=== PATIENT | male | born 1940 | race Caucasian/White ===

== ENCOUNTER 2016-08-22 07:47 | Outpatient (CLI) | payer MEDICARE | END 2016-08-22 07:48 | disposition home or self-care (01) | DX: I25.10 Atherosclerotic heart disease of native coronary artery without angina pectoris (principal); E78.5 Hyperlipidemia, unspecified; E03.9 Hypothyroidism, unspecified; Z79.899 Other long term (current) drug therapy ==

== ENCOUNTER 2016-11-30 07:46 | Outpatient (CLI) | payer MEDICARE | END 2016-11-30 07:47 | disposition home or self-care (01) | DX: D64.9 Anemia, unspecified (principal); E03.9 Hypothyroidism, unspecified ==

== ENCOUNTER 2016-12-06 12:59 | Outpatient (CLI) | payer MEDICARE | END 2016-12-06 13:00 | disposition home or self-care (01) | DX: D75.89 Other specified diseases of blood and blood-forming organs (principal) ==

== ENCOUNTER 2017-03-15 08:00 | Outpatient (CLI) | payer MEDICARE ==
[2017-03-15 19:44] LABS: BASOPHILS % (AUTO) 0.6 %; EOSINOPHILS # (AUTO) 0.3 10^3/uL (0.0-0.7); EOSINOPHILS % (AUTO) 4.2 %; HCT - HEMATOCRIT 38.9 % (42.0-52.0); HGB - HEMOGLOBIN 13.2 g/dL (14.0-18.0); LYMPHOCYTES # (AUTO) 1.2 10^3/uL (1.5-3.5); LYMPHOCYTES % (AUTO) 18.9 %; MEAN CORPUSCULAR HEMOGLOBIN 33.7 pg (27.0-31.0); MEAN CORPUSCULAR HGB CONC 33.9 g/dL (32.0-36.0); MEAN CORPUSCULAR VOLUME 99.3 fL (80.0-94.0); MEAN PLATELET VOLUME 8.5 fL (7.4-11.4); MONOCYTES # (AUTO) 0.5 10^3/uL (0.0-1.0); MONOCYTES % (AUTO) 8.6 %; NEUTROPHILS # (AUTO) 4.3 10^3/uL (1.5-6.6); NEUTROPHILS % (AUTO) 67.7 %; NUCLEATED RED BLOOD CELLS AUTO 0.1 /100WBC; RED BLOOD COUNT 3.92 10^6/uL (4.70-6.10); RED CELL DISTRIBUTION WIDTH 12.4 % (12.0-15.0); UNCORRECTED WHITE BLOOD COUNT 6.3 x10^3/uL; WHITE BLOOD COUNT 6.3 x10^3/uL (4.8-10.8)
== END 2017-03-15 08:01 ==
LOC: LAB.F 08:00
PROVIDERS: ATTEND Internal Medicine
DX: D64.9 Anemia, unspecified (principal)
CPT/HCPCS: 36415; 85025

== ENCOUNTER 2017-09-12 08:41 | Outpatient (CLI) | payer MEDICARE ==
[2017-09-12 12:01] LABS: BASOPHILS % (AUTO) 0.7 %; EOSINOPHILS # (AUTO) 0.3 10^3/uL (0.0-0.7); HGB - HEMOGLOBIN 13.6 g/dL (14.0-18.0); LYMPHOCYTES % (AUTO) 19.5 %; MEAN CORPUSCULAR HEMOGLOBIN 33.1 pg (27.0-31.0); MEAN CORPUSCULAR HGB CONC 34.3 g/dL (32.0-36.0); MEAN CORPUSCULAR VOLUME 96.5 fL (80.0-94.0); MEAN PLATELET VOLUME 9.1 fL (7.4-11.4); MONOCYTES # (AUTO) 0.4 10^3/uL (0.0-1.0); MONOCYTES % (AUTO) 8.6 %; NEUTROPHILS # (AUTO) 3.4 10^3/uL (1.5-6.6); NEUTROPHILS % (AUTO) 66.2 %; PLT - PLATELET COUNT 135 10^3/uL (130-450); RED BLOOD COUNT 4.11 10^6/uL (4.70-6.10); RED CELL DISTRIBUTION WIDTH 12.8 % (12.0-15.0); WHITE BLOOD COUNT 5.1 x10^3/uL (4.8-10.8)
[2017-09-12 12:24] LABS: ALBUMIN 3.8 g/dL (3.2-5.5); ALBUMIN/GLOBULIN RATIO 1.3 (1.0-2.2); ALKALINE PHOSPHATASE 66 IU/L (42-121); ALT ALANINE AMINOTRANSFERASE 33 IU/L (10-60); AST ASPARTATE AMINOTRANSFERASE 33 IU/L (10-42); BILIRUBIN,TOTAL 0.8 mg/dL (0.2-1.0); BUN - BLOOD UREA NITROGEN 21 mg/dL (6-20); CARBON DIOXIDE - CO2 27 mmol/L (21-32); CHLORIDE 107 mmol/L (101-111); CHOLESTEROL 125 mg/dL; GFR - MDRD 73 (>89); GLUCOSE 105 mg/dL (70-100); HDL CHOLESTEROL 41 mg/dL; LDL CHOLESTEROL,CALCULATED 68 mg/dL; LDL/HDL RATIO 1.7 (<3.6); SODIUM 140 mmol/L (135-145); TOTAL PROTEIN 6.8 g/dL (6.7-8.2); VLDL CHOLESTEROL 16 mg/dL
== END 2017-09-12 08:42 | disposition home or self-care (01) ==
LOC: LAB.F 08:41
PROVIDERS: ATTEND Internal Medicine
DX: D58.9 Hereditary hemolytic anemia, unspecified (principal); E03.9 Hypothyroidism, unspecified; E78.5 Hyperlipidemia, unspecified; I25.10 Atherosclerotic heart disease of native coronary artery without angina pectoris; Z12.5 Encounter for screening for malignant neoplasm of prostate; Z79.899 Other long term (current) drug therapy
CPT/HCPCS: 36415; 80053; 80061; 84443; 85025; G0103; 83721; 84153

== ENCOUNTER 2017-10-02 08:48 | Outpatient (CLI) | payer MEDICARE ==
--- NOTE | 2017-10-03 11:50 | DEXA Report ---
DEXA SCAN: 10/02/2017 CLINICAL INDICATION: A 76-year-old male with history of COPD, hypothyroidism, previous diagnosis of osteopenia. TECHNIQUE: Dual energy x-ray absorptiometry (DXA) was performed on a [employer] system. Regions measured are the AP spine, femoral neck, and, if needed, forearm. COMPARISON: None. In accordance with the International Society for Clinical Densitometry (ISCD) guidelines, data from previous exams may be reanalyzed using current recommendations and techniques. This is done to allow a more accurate basis for comparison with the current study. FINDINGS: The data for the lumbar spine is as follows: REGION BMD (g/cm/cm) T-SCORE Z-SCORE L1 0.910 -2.1 -2.0 L2 1.222 -0.2 0.0 L3 1.159 -0.7 -0.6 L4 1.117 -1.0 -0.9 TOTAL 1.104 -1.0 -0.9 NOTE: All evaluable vertebrae are used for classification. The data for the hip is as follows: REGION BMD (g/cm/cm) T-SCORE Z-SCORE Neck 0.769 -2.3 -1.3 TOTAL 0.876 -1.6 -1.0 NOTE: The femoral neck or total proximal femur, whichever is lowest, is used for classification. IMPRESSION: THE WHO CLASSIFICATION BASED ON THE INTERNATIONAL REFERENCE STANDARD IS OSTEOPENIA. THE FRACTURE RISK IS INCREASED. RECOMMENDATION: Patients with diagnosis of osteoporosis or osteopenia should have regular bone mineral density assessment. For those eligible for Medicare, routine testing is allowed once every 2 years. Testing frequency can be increased for patients who have rapidly progressing disease or for those who are receiving medical therapy to restore bone mass. COMMENT: World Health Organization (WHO) definitions for osteoporosis and osteopenia: NORMAL BMD: T-score at 1.0 or higher, fracture risk is low. OSTEOPENIA BMD: T-score between 1.0 and -2.5, fracture risk is increased. OSTEOPOROSIS BMD: T-score at 2.5 or lower, fracture risk high. National Osteoporosis Foundation recommends: 1. Obtain adequate dietary calcium (at least 1200 mg per day) and vitamin D (400 -800 international units per day). 2. Participate, as appropriate, in regular weightbearing and muscle- strengthening exercise. 3. Avoid tobacco use and reduce alcohol and caffeine intake. 4. For more detailed information see the website at www.NOF.org. MTDD
== END 2017-10-02 08:49 | disposition home or self-care (01) ==
LOC: DI 08:48
PROVIDERS: ATTEND Internal Medicine
DX: M85.89 Other specified disorders of bone density and structure, multiple sites (principal)
CPT/HCPCS: 77080

== ENCOUNTER 2018-03-27 09:42 | Outpatient (CLI) | payer MEDICARE ==
[2018-03-27 17:15] LABS: BASOPHILS % (AUTO) 0.5 %; EOSINOPHILS # (AUTO) 0.2 10^3/uL (0.0-0.7); EOSINOPHILS % (AUTO) 4.1 %; HGB - HEMOGLOBIN 13.6 g/dL (14.0-18.0); LYMPHOCYTES # (AUTO) 0.9 10^3/uL (1.5-3.5); LYMPHOCYTES % (AUTO) 19.2 %; MEAN CORPUSCULAR HEMOGLOBIN 33.4 pg (27.0-31.0); MEAN CORPUSCULAR HGB CONC 34.2 g/dL (32.0-36.0); MEAN CORPUSCULAR VOLUME 97.6 fL (80.0-94.0); MEAN PLATELET VOLUME 8.9 fL (7.4-11.4); MONOCYTES # (AUTO) 0.5 10^3/uL (0.0-1.0); MONOCYTES % (AUTO) 10.1 %; NEUTROPHILS # (AUTO) 3.2 10^3/uL (1.5-6.6); NEUTROPHILS % (AUTO) 66.1 %; PLT - PLATELET COUNT 136 10^3/uL (130-450); RED BLOOD COUNT 4.09 10^6/uL (4.70-6.10); RED CELL DISTRIBUTION WIDTH 13.4 % (12.0-15.0); WHITE BLOOD COUNT 4.9 x10^3/uL (4.8-10.8)
== END 2018-03-27 09:43 | disposition home or self-care (01) ==
LOC: LAB.F 09:42
PROVIDERS: ATTEND Internal Medicine
DX: D64.9 Anemia, unspecified (principal)
CPT/HCPCS: 36415; 85025

== ENCOUNTER 2018-05-23 08:41 | Outpatient (CLI) | payer MEDICARE ==
[2018-05-23 09:07] LABS: BASOPHILS % (AUTO) 0.8 %; EOSINOPHILS # (AUTO) 0.3 10^3/uL (0.0-0.7); EOSINOPHILS % (AUTO) 5.8 %; HGB - HEMOGLOBIN 13.8 g/dL (14.0-18.0); LYMPHOCYTES # (AUTO) 0.9 10^3/uL (1.5-3.5); LYMPHOCYTES % (AUTO) 18.2 %; MEAN CORPUSCULAR HEMOGLOBIN 33.9 pg (27.0-31.0); MEAN CORPUSCULAR HGB CONC 34.8 g/dL (32.0-36.0); MEAN CORPUSCULAR VOLUME 97.5 fL (80.0-94.0); MEAN PLATELET VOLUME 8.2 fL (7.4-11.4); MONOCYTES # (AUTO) 0.5 10^3/uL (0.0-1.0); MONOCYTES % (AUTO) 9.5 %; NEUTROPHILS # (AUTO) 3.2 10^3/uL (1.5-6.6); NEUTROPHILS % (AUTO) 65.7 %; PLT - PLATELET COUNT 138 10^3/uL (130-450); RED BLOOD COUNT 4.06 10^6/uL (4.70-6.10); RED CELL DISTRIBUTION WIDTH 13.4 % (12.0-15.0); WHITE BLOOD COUNT 4.8 x10^3/uL (4.8-10.8)
[2018-05-23 09:18] LABS: PT - PROTHROMBIN TIME 11.5 secs (9.9-12.6)
[2018-05-23 09:21] LABS: ALBUMIN/GLOBULIN RATIO 1.3 (1.0-2.2); BILIRUBIN,TOTAL 1.1 mg/dL (0.2-1.0); CALCIUM 9.6 mg/dL (8.5-10.3); CREATININE 1.2 mg/dL (0.6-1.2)
--- NOTE | 2018-05-23 09:42 | XRAY Report ---
Reason: DA SILVA Procedure Date: 05/23/2018 Accession Number: [id number] / [id number] Procedure: XR - Chest 2 View X-Ray CPT Code: 86046 FULL RESULT: EXAM: CHEST RADIOGRAPHY EXAM DATE: 05/23/2018 09:17 AM. CLINICAL HISTORY: Shortness of breath. COMPARISON: None. TECHNIQUE: 2 views. FINDINGS: Lungs/Pleura: No focal opacities evident. No pleural effusion. No pneumothorax. Normal volumes. Mediastinum: Heart and mediastinal contours are notable for aortic calcification. Median sternotomy wires and surgical clips consistent with CABG is seen. Other: None. IMPRESSION: No cardiopulmonary abnormality demonstrated status post open heart surgery. RADIA
== END 2018-05-23 08:42 | disposition home or self-care (01) ==
LOC: LAB 08:41 → DI 08:42
PROVIDERS: ATTEND Internal Medicine Cardiovascular Disease
DX: R06.00 Dyspnea, unspecified (principal)
CPT/HCPCS: 36415; 71046; 80053; 83880; 84443; 85025; 85610

== ENCOUNTER 2018-07-26 11:26 | Outpatient (CLI) | payer MEDICARE ==
[2018-07-26 17:52] LABS: CALCIUM 9.5 mg/dL (8.5-10.3); CREATININE 1.3 mg/dL (0.6-1.2)
== END 2018-07-26 11:27 | disposition home or self-care (01) ==
LOC: LAB.F 11:26
PROVIDERS: ATTEND Internal Medicine Cardiovascular Disease
DX: I10 Essential (primary) hypertension (principal)
CPT/HCPCS: 36415; 80048

== ENCOUNTER 2019-05-13 19:13 | Emergency (ER) | payer MEDICARE ==
[2019-05-13 19:32] LABS: BILIRUBIN,URINE NEGATIVE (NEGATIVE); GLUCOSE, URINE (UA) NEGATIVE (NEGATIVE); KETONES,URINE (UA) NEGATIVE (NEGATIVE); LEUKOCYTE ESTERASE, URINE NEGATIVE (NEGATIVE); NITRITE,URINE NEGATIVE (NEGATIVE); OCCULT BLOOD,URINE LARGE (NEGATIVE); PROTEIN,URINE NEGATIVE (NEGATIVE); UROBILINOGEN,URINE 0.2 (NORMAL) E.U./dL (NORMAL)
[2019-05-13 19:34] LABS: CLARITY,URINE HAZY (CLEAR)
[2019-05-13 20:06] LABS: AMORPHOUS SEDIMENT,UR Few /LPF; BACTERIA,URINE Rare /HPF (None Seen); SQUAMOUS EPITHELIAL CELL,UR FEW Squamous (<= Few)
[2019-05-13] MEDS ORDERED: HYDROmorphone 1 MG/ML CARPUJECT IVP STA (20:27)
[2019-05-13] MEDS ORDERED: ONDANSETRON 4 MG/2 ML VIAL IVP STA (20:27)
[2019-05-13] MEDS ORDERED: SODIUM CHLORIDE 0.9% 1,000 ML IV ONE (20:27)
[2019-05-13] MEDS ORDERED: KETOROLAC 30 MG/ML VIAL IVP STA (20:27)
--- NOTE | 2019-05-13 20:29 | ED Physician Documentation ---
PD HPI ABD PAIN - Stated complaint Stated Complaint: BACK/AB PX - Chief complaint Chief Complaint: Abd Pain - History obtained from History obtained from: Patient - History of Present Illness Timing - onset: Yesterday (78-year-old gentleman with history of renal colic. Did need lithotripsy at one time. He developed right flank pain that has been Waxing and waning since then. No gross hematuria. Feels reminiscent of prior renal colic.) Review of Systems Constitutional: denies: Fever, Chills GI: reports: Nausea. denies: Vomiting : denies: Dysuria, Frequency, Hesitancy PD PAST MEDICAL HISTORY - Past Medical History Past Medical History: Yes Cardiovascular: High cholesterol, Coronary artery disease Respiratory: Asthma Neuro: None Endocrine/Autoimmune: HyPOthyroidism GI: GERD : Kidney stones HEENT: None Psych: None Musculoskeletal: Osteoarthritis Derm: None - Past Surgical History Past Surgical History: Yes General: Appendectomy, Colonoscopy Cardiovascular: CABG, Coronary stent - Present Medications Home Medications: Ambulatory Orders Medication Instructions Recorded Confirmed Aspirin [Aspir 81] 81 mg PO DAILY 09/01/13 05/13/19 Atorvastatin Calcium [Lipitor] 80 mg PO DAILY 09/01/13 05/13/19 Levothyroxine [Synthroid] 0.075 mcg PO DAILY 09/01/13 05/13/19 Metoprolol Succinate [Toprol Xl] 50 mg PO BID 09/01/13 05/13/19 Pantoprazole Sodium 40 mg PO DAILY 09/01/13 05/13/19 Allopurinol 100 mg PO DAILY 05/13/19 05/13/19 Losartan Potassium 25 mg PO DAILY 05/13/19 05/13/19 Tamsulosin [Flomax] 0.4 mg PO DAILY 05/13/19 05/13/19 Tramadol HCl 50 mg PO Q6HR 05/13/19 05/13/19 Triamterene/Hydrochlorothiazid 1 mg PO DAILY 05/13/19 05/13/19 [Triamterene-Hctz 37.5-25 mg Cp] Vit C/Ascorb Sod/Multivit-Min 500 mg PO BID 05/13/19 05/13/19 [Emergen-C 500 mg Chewable Tab] - Allergies Allergies/Adverse Reactions: Allergies Allergy/AdvReac Type Severity Reaction Status Date / Time oxycodone [From OxyContin] AdvReac Rash Verified 05/13/19 21:10 - Social History Does the pt smoke?: No Smoking Status: Never smoker Does the pt drink ETOH?: No Does the pt have substance abuse?: No - Immunizations Immunizations are current?: Yes - POLST Patient has POLST: No PD ED PE NORMAL - Vitals Vital signs reviewed: Yes - General General: Alert and oriented X 3, No acute distress - Abdomen Abdomen: Normal bowel sounds, Soft, Non tender - Back Back: No CVA TTP - Extremities Extremities: No edema, No calf tenderness / cord - Neuro Neuro: Alert and oriented X 3, Normal speech - Psych Psych: Normal mood, Normal affect Results - Vitals Vitals: Vital Signs - 24 hr 05/13/19 05/13/19 19:16 20:42 Temperature 36.5 C Heart Rate 92 81 Respiratory 16 16 Rate Blood Pressure 162/73 H 135/69 H O2 Saturation 96 99 Oxygen O2 Source Nasal cannula - Labs Labs: Laboratory Tests 05/13/19 05/13/19 05/13/19 19:23 19:50 19:50 WBC 9.3 RBC 4.11 L Hgb 13.4 L Hct 39.8 L MCV 96.8 H MCH 32.6 H MCHC 33.7 RDW 12.8 Plt Count 135 MPV 10.6 Neut # (Auto) 8.2 H Lymph # (Auto) 0.4 L [place] # (Auto) 0.7 Eos # (Auto) 0.0 Baso # (Auto) 0.0 Absolute Nucleated RBC 0.00 Nucleated RBC % 0.0 Sodium 138 Potassium 4.4 Chloride 97 L Carbon Dioxide 28 Anion Gap 13.0 BUN 28 H Creatinine 2.0 H Estimated GFR (MDRD) 33 L Glucose 165 H Calcium 9.9 Total Bilirubin 0.9 AST 36 ALT 39 Alkaline Phosphatase 68 Total Protein 7.8 Albumin 4.5 Globulin 3.3 Albumin/Globulin Ratio 1.4 Lipase 26 Urine Color YELLOW Urine Clarity HAZY Urine pH 5.0 Ur Specific [place] >=1.030 H Urine Protein NEGATIVE Urine Glucose (UA) NEGATIVE Urine Ketones NEGATIVE Urine Occult Blood LARGE H Urine Nitrite NEGATIVE Urine Bilirubin NEGATIVE Urine Urobilinogen 0.2 (NORMAL) Ur Leukocyte Esterase NEGATIVE Urine RBC 6-10 H Urine WBC 6-10 H Ur Squamous Epith Cells FEW Squamous Amorphous Sediment Few Urine Bacteria Rare Ur Microscopic Review INDICATED Urine Culture Comments INDICATED - Rads (name of study) CT KUB Radiology: EMP read contemporaneously (4 mm distal right ureteral stone with small stones in the kidneys and cholelithiasis.) PD MEDICAL DECISION MAKING - ED course ED course: 78-year-old gentleman presents with what is likely the right renal colic. We discussed potentially CT versus a more conservative course with meds only and he opted for the CT. After the administration of 1 mg of Dilaudid, 30 mg of Toradol, 4 mg of Zofran IV he was pain-free and comfortable. CT to my eye shows a small minimally obstructing stone in the right distal ureter. He is pain-free. He is given a Vicodin prepack. Advised to follow-up with [facility] urology in a week if not better. Given urine strainers. Given prescriptions for hydrocodone/acetaminophen 5/325 1 to 2 tablets every 6 hours as needed for pain #20, he is already on Flomax. Also a prescription for Zofran 4 mg every 6 hours as needed for nausea, #10. Departure - Departure Disposition: 01 Home, Self Care Clinical Impression: Renal colic Condition: Good Comments: He was given paper discharge instructions/rxs as we were in [facility] downtime.
[2019-05-13 20:45] VITALS: BP 135/69
[2019-05-13 20:47] LABS: ALBUMIN 4.5 g/dL (3.2-5.5); ALBUMIN/GLOBULIN RATIO 1.4 (1.0-2.2); BILIRUBIN,TOTAL 0.9 mg/dL (0.2-1.0); CALCIUM 9.9 mg/dL (8.5-10.3); TOTAL PROTEIN 7.8 g/dL (6.7-8.2)
[2019-05-13 20:54] LABS: BASOPHILS % (AUTO) 0.2 %; EOSINOPHILS % (AUTO) 0.1 %; HGB - HEMOGLOBIN 13.4 g/dL (14.0-18.0); LYMPHOCYTES # (AUTO) 0.4 10^3/uL (1.5-3.5); MEAN CORPUSCULAR HEMOGLOBIN 32.6 pg (27.0-31.0); MEAN CORPUSCULAR HGB CONC 33.7 g/dL (32.0-36.0); MEAN CORPUSCULAR VOLUME 96.8 fL (80.0-94.0); MEAN PLATELET VOLUME 10.6 fL (7.4-11.4); MONOCYTES # (AUTO) 0.7 10^3/uL (0.0-1.0); MONOCYTES % (AUTO) 7.3 %; NEUTROPHILS # (AUTO) 8.2 10^3/uL (1.5-6.6); PLT - PLATELET COUNT 135 10^3/uL (130-450); RED BLOOD COUNT 4.11 10^6/uL (4.70-6.10); RED CELL DISTRIBUTION WIDTH 12.8 % (12.0-15.0); WHITE BLOOD COUNT 9.3 x10^3/uL (4.8-10.8)
--- NOTE | 2019-05-13 22:33 | CT Report ---
Reason: R flank pain stone study Procedure Date: 05/13/2019 Accession Number: [id number] / [id number] Procedure: CT - Abdomen/Pelvis WO CPT Code: FULL RESULT: EXAM: CT ABDOMEN AND PELVIS (CT KUB) EXAM DATE: 05/13/2019 10:12 PM. CLINICAL HISTORY: R flank pain stone study. COMPARISONS: ABDOMEN/PELVIS W/O 02/24/2016 4:38 PM. TECHNIQUE: Routine axial helical CT imaging was performed through the abdomen and pelvis without IV contrast. Reconstructions: Coronal and sagittal. In accordance with CT protocol optimization, one or more of the following dose reduction techniques were utilized for this exam: automated exposure control, adjustment of mA and/or KV based on patient size, or use of iterative reconstructive technique. FINDINGS: Lung Bases: Unremarkable. Right Kidney/Ureter: 4 mm obstructive calculus in right distal ureter with upstream hydroureteronephrosis. Mildly enlarged right kidney with perinephric fat stranding, suggestive of acute obstructive uropathy. Left Kidney/Ureter: A nonobstructive 3 mm calculus and a 2 mm calculus in the midpole region of left kidney. No hydronephrosis. No hydronephrosis, or hydroureter. No perinephric fat stranding. Other Solid Organs: Noncontrast images of the solid organs are grossly unremarkable. Gallbladder/Bile Ducts: Cholelithiasis. Peritoneal Cavity: No free fluid, free air or daphne adenopathy. Bowel is grossly unremarkable. Diffuse colonic diverticulosis however no diverticulitis. Pelvic Organs: No bladder stones or wall thickening. Noncontrast images of the visualized pelvic organs are unremarkable. Vasculature: Unremarkable. Other: None. IMPRESSION: A 4 mm obstructive calculus in the right distal ureter with upstream hydroureteronephrosis. 2 nonobstructive small calculi in midpole of left kidney. Cholelithiasis. RADIA
[2019-05-13] MEDS ORDERED: HYDROcod/ACET 5/325 Prepack 4 PO ONE (22:34)
[2019-05-13] MEDS ORDERED: ONDANSETRON ODT 4 MG Prepack 2 TL ONE (22:34)
== END 2019-05-13 22:08 | disposition home or self-care (01) ==
LOC: ED 19:13
DX: N13.2 Hydronephrosis with renal and ureteral calculous obstruction (principal); N20.0 Calculus of kidney; K80.20 Calculus of gallbladder without cholecystitis without obstruction; Z79.82 Long term (current) use of aspirin
CPT/HCPCS: 36415; 74176; 80053; 81001; 83690; 85025; 87086; 96361; 96374; 99283; 99284; J1170; 81003

== ENCOUNTER 2020-06-18 08:22 | Outpatient (CLI) | payer MEDICARE ==
--- NOTE | 2020-06-18 09:59 | DEXA Report ---
PROCEDURE: Dexa Spine and/or Hip INDICATIONS: DISORDER OF BONE TECHNIQUE: Dual energy x-ray absorptiometry (DXA) was performed on a [employer] System. Regions measur ed are the AP Spine, femoral neck, and if needed forearm. COMPARISON: DEXA 10/02/2017 FINDINGS: Lumbar Spine: Bone Mineral Density 1.148 g/cm/cm,T score -0.6, normal and unchanged Left Hip: Bone Mineral Density 0.890 g/cm/cm,T score -1.5, compared to -1.6 on prior exam, mild osteopenia. Left Femoral Neck: Bone Mineral Density 0.804 g/cm/cm, T score -2.0, compared to -2.3 on prior exam, moderate to severe osteopenia (T score greater or equal to -1.0: NORMAL) (T score from -1.1 to -2.4: OSTEOPENIA) (T score less than or equal to -2.5 to: OSTEOPOROSIS) Impression: Persistent although mildly improved osteopenia within the left femoral neck. Patients with diagnosis of osteoporosis or osteopenia should have regular bone mineral density assess ment. For those eligible for Medicare, routine testing is allowed once every 2 years. Testing frequ ency can be increased for patients who have rapidly progressing disease or for those who are receivin g medical therapy to restore bone mass. Reviewed by: Renee Duong MD on 06/18/2020 9:58 AM PST Approved by: Renee Duong MD on 06/18/2020 9:58 AM PST Station ID: [id number]
== END 2020-06-18 08:23 | disposition home or self-care (01) ==
LOC: DI 08:22
PROVIDERS: ATTEND Physician Assistant
DX: M85.88 Other specified disorders of bone density and structure, other site (principal)
CPT/HCPCS: 77080

== ENCOUNTER 2020-12-21 16:05 | Outpatient (CLI) | payer MEDICARE | END 2020-12-21 16:06 | disposition home or self-care (01) | LOC: COV 16:05 | PROVIDERS: ATTEND Internal Medicine Cardiovascular Disease | DX: Z01.812 Encounter for preprocedural laboratory examination (principal); I25.119 Atherosclerotic heart disease of native coronary artery with unspecified angina pectoris; R06.09 Other forms of dyspnea; Z20.822 Contact with and (suspected) exposure to COVID-19 ==

== ENCOUNTER 2023-03-01 08:00 | Outpatient (CLI) | payer MEDICARE ==
--- NOTE | 2023-03-01 10:24 | XRAY Report ---
PROCEDURE: Hip w/Pelvis 2-3V LT INDICATIONS: LEFT HIP BURSITIS TECHNIQUE: AP pelvis with lateral view(s) of the left hip(s). COMPARISON: None. FINDINGS: Bones: No fractures or dislocations. No suspicious bony lesions. Moderate left hip joint degenerati on. Note is made of right hip arthroplasty. Soft tissues: No suspicious soft tissue calcifications or masses. IMPRESSION: Moderate osteoarthritis. To evaluate bursitis, please consider MRI. Reviewed by: Carlyn Barnes MD on 03/01/2023 10:23 AM PDT Approved by: Carlyn Barnes MD on 03/01/2023 10:23 AM PDT Station ID: [id number]
== END 2023-03-01 23:59 | disposition home or self-care (01) ==
LOC: DI.S 08:00
PROVIDERS: ATTEND Physician Assistant
DX: M16.12 Unilateral primary osteoarthritis, left hip (principal)

== ENCOUNTER 2023-04-16 10:23 | Outpatient (CLI) | payer MEDICARE ==
[2023-04-16 15:53] LABS: BUN - BLOOD UREA NITROGEN 25 mg/dL (6-20); CALCIUM 9.9 mg/dL (8.5-10.3); CARBON DIOXIDE - CO2 31 mmol/L (21-32); CHLORIDE 108 mmol/L (101-111); CHOL/HDL RATIO 2.7 (<5.0); CHOLESTEROL 116 mg/dL; CREATININE 1.1 mg/dL (0.6-1.3); GFR - MDRD 64 (>89); GLUCOSE 105 mg/dL (74-104); HDL CHOLESTEROL 43 mg/dL; LDL CHOLESTEROL,CALCULATED 45 mg/dL; POTASSIUM 4.3 mmol/L (3.5-4.5); SODIUM 142 mmol/L (135-145); TRIGLYCERIDES 140 mg/dL (48-352); VLDL CHOLESTEROL 28 mg/dL
== END 2023-04-16 10:24 | disposition home or self-care (01) ==
LOC: LAB.S 10:23
PROVIDERS: ATTEND Internal Medicine Cardiovascular Disease
DX: I25.10 Atherosclerotic heart disease of native coronary artery without angina pectoris (principal)
CPT/HCPCS: 36415; 80048; 80061; 83721

== ENCOUNTER 2023-07-11 10:34 | Outpatient (CLI) | payer MEDICARE ==
[2023-07-11 14:36] LABS: BASOPHILS % (AUTO) 0.6 %; EOSINOPHILS # (AUTO) 0.4 10^3/uL (0.0-0.7); LYMPHOCYTES # (AUTO) 0.9 10^3/uL (1.5-3.5); LYMPHOCYTES % (AUTO) 18.2 %; MEAN CORPUSCULAR HEMOGLOBIN 32.4 pg (27.0-31.0); MEAN CORPUSCULAR HGB CONC 31.7 g/dL (32.0-36.0); MEAN CORPUSCULAR VOLUME 102.2 fL (80.0-94.0); MEAN PLATELET VOLUME 10.8 fL (7.4-11.4); MONOCYTES # (AUTO) 0.4 10^3/uL (0.0-1.0); NEUTROPHILS # (AUTO) 3.1 10^3/uL (1.5-6.6); NEUTROPHILS % (AUTO) 63.8 %; PLT - PLATELET COUNT 147 10^3/uL (130-450); RED BLOOD COUNT 4.01 10^6/uL (4.70-6.10); RED CELL DISTRIBUTION WIDTH 12.7 % (12.0-15.0); WHITE BLOOD COUNT 4.9 x10^3/uL (4.8-10.8)
[2023-07-11 14:50] LABS: ALBUMIN/GLOBULIN RATIO 1.4 (1.0-2.2); BILIRUBIN,TOTAL 0.6 mg/dL (0.2-1.0); CALCIUM 10.1 mg/dL (8.5-10.3); CREATININE 1.2 mg/dL (0.6-1.3); POTASSIUM 4.6 mmol/L (3.5-4.5); TOTAL PROTEIN 6.9 g/dL (6.4-8.9)
[2023-07-11 15:04] LABS: THYROID STIMULATING HORMONE 4.51 uIU/mL (0.34-5.60)
== END 2023-07-11 10:35 | disposition home or self-care (01) ==
LOC: LAB.S 10:34
PROVIDERS: ATTEND Physician Assistant Medical
DX: E03.9 Hypothyroidism, unspecified (principal); Z13.9 Encounter for screening, unspecified
CPT/HCPCS: 36415; 80053; 84153; 84443; 85025

== ENCOUNTER 2024-03-12 08:07 | Outpatient (CLI) | payer MEDICARE ==
[2024-03-12 15:12] LABS: BASOPHILS % (AUTO) 0.6 %; EOSINOPHILS # (AUTO) 0.5 10^3/uL (0.0-0.7); EOSINOPHILS % (AUTO) 9.8 %; HCT - HEMATOCRIT 39.6 % (42.0-52.0); HGB - HEMOGLOBIN 12.6 g/dL (14.0-18.0); LYMPHOCYTES # (AUTO) 0.9 10^3/uL (1.5-3.5); LYMPHOCYTES % (AUTO) 17.3 %; MEAN CORPUSCULAR HEMOGLOBIN 32.5 pg (27.0-31.0); MEAN CORPUSCULAR HGB CONC 31.8 g/dL (32.0-36.0); MEAN CORPUSCULAR VOLUME 102.1 fL (80.0-94.0); MEAN PLATELET VOLUME 10.8 fL (7.4-11.4); MONOCYTES # (AUTO) 0.5 10^3/uL (0.0-1.0); MONOCYTES % (AUTO) 9.6 %; NEUTROPHILS # (AUTO) 3.3 10^3/uL (1.5-6.6); NEUTROPHILS % (AUTO) 62.3 %; PLT - PLATELET COUNT 157 10^3/uL (130-450); RED BLOOD COUNT 3.88 10^6/uL (4.70-6.10); RED CELL DISTRIBUTION WIDTH 12.9 % (12.0-15.0); WHITE BLOOD COUNT 5.3 x10^3/uL (4.8-10.8)
[2024-03-12 15:36] LABS: ESTIMATED AVERAGE GLUCOSE 111 mg/dL (70-100); HEMOGLOBIN A1c% 5.5 % (4.27-6.07)
[2024-03-12 15:43] LABS: ALBUMIN 3.8 g/dL (3.2-5.5); ALBUMIN/GLOBULIN RATIO 1.4 (1.0-2.2); ALKALINE PHOSPHATASE 63 IU/L (42-121); ALT ALANINE AMINOTRANSFERASE 29 IU/L (10-60); AST ASPARTATE AMINOTRANSFERASE 28 IU/L (10-42); BILIRUBIN,TOTAL 0.5 mg/dL (0.2-1.0); BUN - BLOOD UREA NITROGEN 25 mg/dL (6-20); CALCIUM 9.7 mg/dL (8.5-10.3); CARBON DIOXIDE - CO2 29 mmol/L (21-32); CHLORIDE 109 mmol/L (101-111); CHOL/HDL RATIO 2.8 (<5.0); CHOLESTEROL 116 mg/dL; CREATININE 1.1 mg/dL (0.6-1.3); GFR - MDRD 64 (>89); GLUCOSE 104 mg/dL (74-104); HDL CHOLESTEROL 41 mg/dL; LDL CHOLESTEROL,CALCULATED 56 mg/dL; LDL/HDL RATIO 1.4 (<3.6); POTASSIUM 4.5 mmol/L (3.5-4.5); SODIUM 141 mmol/L (135-145); TOTAL PROTEIN 6.6 g/dL (6.4-8.9); TRIGLYCERIDES 94 mg/dL; URIC ACID 7.2 mg/dL (4.4-7.6); VLDL CHOLESTEROL 19 mg/dL
[2024-03-12 15:55] LABS: THYROID STIMULATING HORMONE 4.24 uIU/mL (0.34-5.60)
== END 2024-03-12 08:08 | disposition home or self-care (01) ==
LOC: LAB.S 08:07
PROVIDERS: ATTEND Nurse Practitioner Gerontology
DX: Z79.899 Other long term (current) drug therapy (principal); E78.5 Hyperlipidemia, unspecified; E03.9 Hypothyroidism, unspecified; D64.9 Anemia, unspecified
CPT/HCPCS: 36415; 80053; 80061; 82306; 82607; 83036; 83721; 84443; 84550; 85025